=== PATIENT | female | born 1965 | race Two or more races ===

== ENCOUNTER → 2024-04-29 | Outpatient (CLI) | payer MEDICAID, SELFPAY ==
--- NOTE | 2024-04-29 11:45 | XR_ITS ---
Examination: Screening digital mammography, bilateral Computer aided detection 3-D breast Tomosynthesis, bilateral Date and time of exam: April 29, 2024 1159 hours Compared to mammograms dating to 02/13/2019 Indication: Screening Technique: Nonmagnified MLO, CC views of the breasts to been obtained, reconstructed from 3-D Tomosynthesis images. R2 computer aided detection program utilized for evaluation of suspicious masses and/or abnormal calcifications. 3-D Tomosynthesis images obtained. Findings: Scattered areas of fibroglandular density Nodule with breast biopsy marker retroareolar region right breast appears stable No interval suspicious masses Impression: BI-RADS category II: Benign Findings. Recommend 1 year follow-up mammogram. Follow-up right breast sonography would be helpful in confirming stability of 12:00 nodule right breast, 12 x 9 mm on right breast sonogram April 04, 2019
== END | disposition home or self-care (01) ==
LOC: CDIM 11:49
PROVIDERS: Referring Provider Physician Assistant; Visit Provider Physician Assistant
DX: Z12.31 Encounter for screening mammogram for malignant neoplasm of breast (principal); R92.323 Mammographic fibroglandular density, bilateral breasts; N63.15 Unspecified lump in the right breast, overlapping quadrants
CPT/HCPCS: 77063; 77067